=== PATIENT | female | born 1965 | race American Indian/Alaskan Native ===

== ENCOUNTER 2019-09-22 20:31 | Emergency (ER) | payer OTHER ==
[2019-09-22] MEDS ORDERED: ACETAMINOPHEN 500 MG TAB PO ONE (22:24)
[2019-09-22] MEDS ORDERED: IBUPROFEN 600 MG TAB PO ONE (22:24)
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
[2019-09-22 23:26] VITALS: BP 143/69
== END 2019-09-22 23:30 | disposition home or self-care (01) ==
LOC: ED 20:31
DX: M62.838 Other muscle spasm (principal); I10 Essential (primary) hypertension; R73.03 Prediabetes; Z79.899 Other long term (current) drug therapy; Z88.1 Allergy status to other antibiotic agents; Z88.8 Allergy status to other drugs, medicaments and biological substances; V49.49XA Driver injured in collision with other motor vehicles in traffic accident, initial encounter; Y93.89 Activity, other specified; Y92.410 Unspecified street and highway as the place of occurrence of the external cause; Y99.8 Other external cause status
CPT/HCPCS: 72040

== ENCOUNTER 2019-12-30 13:16 | Outpatient (CLI) | payer OTHER ==
--- NOTE | 2019-12-30 15:29 | XRay Report ---
CHEST 2 VIEWS INDICATION / CLINICAL INFORMATION: Nonspecific reaction to tuberculin skin test without active tuber. COMPARISON: 03/25/2018 FINDINGS: SUPPORT DEVICES: None. HEART / MEDIASTINUM: No significant abnormality. LUNGS / PLEURA: No significant pulmonary or pleural abnormality. .No pneumothorax. ADDITIONAL FINDINGS: No significant additional findings. IMPRESSION: 1. No acute findings. Signer Name: Tim Louis MD Signed: 12/30/2019 3:24 PM Workstation Name: [id number]
== END 2019-12-30 13:17 | disposition home or self-care (01) ==
LOC: XRAY 13:16
PROVIDERS: ATTEND Internal Medicine
DX: R76.11 Nonspecific reaction to tuberculin skin test without active tuberculosis (principal)
CPT/HCPCS: 71046

== ENCOUNTER 2022-03-12 15:09 | Outpatient (CLI) | payer OTHER ==
--- NOTE | 2022-03-12 16:41 | XRay Report ---
CHEST 2 VIEWS INDICATION / CLINICAL INFORMATION: TB Screen+ppd. COMPARISON: Previous chest x-ray on 12/30/2019 FINDINGS: SUPPORT DEVICES: None. HEART / MEDIASTINUM: No significant abnormality. LUNGS / PLEURA: No significant pulmonary or pleural abnormality. No pneumothorax. ADDITIONAL FINDINGS: No significant additional findings. IMPRESSION: 1. No acute findings. Signer Name: Jose Escobedo MD Signed: 03/12/2022 4:36 PM Workstation Name: [id number]
== END 2022-03-12 15:10 | disposition home or self-care (01) ==
LOC: XRAY 15:09
PROVIDERS: ATTEND Family Medicine
DX: Z11.1 Encounter for screening for respiratory tuberculosis (principal)
CPT/HCPCS: 71046